=== PATIENT | female | born 1980 ===

== ENCOUNTER 2017-02-12 11:58 | Emergency (ER) | payer SELFPAY ==
[2017-02-12 12:03] VITALS: BMI 26.6
[2017-02-12 12:09] VITALS: TEMP 97.8
[2017-02-12 12:42] LABS: HCG,QUALITATIVE URINE NEGATIVE (NEGATIVE)
[2017-02-12] MEDS ORDERED: Lactated Ringer's 1,000 ML IV ONE (12:51)
[2017-02-12] MEDS ORDERED: Morphine 4 MG/ML VIAL ONE (12:55)
[2017-02-12 12:58] LABS: SQUAMOUS EPITHIAL 4 /hpf (0-5); URINE BILIRUBIN NEGATIVE (NEGATIVE); URINE CLARITY Clear (Clear); URINE COLOR Yellow (YELLOW); URINE GLUCOSE (UA) NORMAL (Normal); URINE LEUKOCYTE ESTERASE NEG Leu/uL (Negative); URINE NITRATE NEGATIVE (NEGATIVE); URINE PROTEIN 1+ mg/dL (NEGATIVE)
[2017-02-12 13:01] LABS: URINE BLOOD TRACE (NEGATIVE)
[2017-02-12 13:25] LABS: BASO # 0.1 K/uL (0.0-0.2); BASO % 0.4 % (0.0-2.0); HEMOGLOBIN 13.6 g/dL (11.0-16.0); LYMPH % 6.3 % (20.0-40.0); MEAN CELL VOLUME 90.5 fL (81.0-99.0); MEAN CORPUSCULAR HEMOGLOBIN 31.3 pg (27.0-31.0); MEAN CORPUSCULAR HGB CONC 34.6 g/dL (33.0-37.0); MEAN PLATELET VOLUME 7.4 fL (7.2-11.7); MONO # 0.4 K/uL (0.0-0.8); MONO % 2.4 % (0.0-10.0); NEUT # 13.9 K/uL (1.8-7.0); NEUT % 90.9 % (50.0-75.0); PLATELET COUNT 366 K/uL (130-400); RBC 4.35 Mil/uL (3.80-5.20); RED CELL DISTRIBUTION WIDTH 12.4 % (11.5-14.5); WHITE BLOOD COUNT 15.3 K/uL (4.8-10.8)
[2017-02-12 13:35] LABS: ALB/GLOB RATIO 1.4 (1.0-2.1); ALBUMIN 4.5 g/dL (3.5-5.0); ALT/SGPT 23 U/L (9-52); AST/SGOT 23 U/L (14-36); BLOOD UREA NITROGEN 18 mg/dL (7-17); CALCIUM 8.8 mg/dl (8.6-10.4); GFR AFRICAN-AMERICAN > 60; GFR NON-AFRICAN AMERICAN > 60; LIPASE 32 U/L (23-300)
--- NOTE | 2017-02-12 13:41 | C.PDOC ---
History Of Present Illness Patient is a 36 y/o female who presents to the ED with complaint of lower abdominal pain associated with nausea, 1 episode of vomiting, and a burning sensation when urinating for the last 3 days. Patient admits symptoms increased gradually over the last 3 days, but now radiates to her lower back. Denies any high fever, SOB, CP, chills, or recent illness. No other physical complaints at this time. Time Seen by Provider: 02/12/17 12:25 Chief Complaint (Nursing): Abdominal Pain History Per: Patient History/Exam Limitations: no limitations Onset/Duration Of Symptoms: Days (3 days), Gradual Current Symptoms Are (Timing): Still Present Location Of Pain/Discomfort: Suprapubic Radiation Of Pain To:: Back (lower back) Associated Symptoms: Nausea, Vomiting (1 episode), Urinary Symptoms (dysuria). denies: Fever, Chills Recent travel outside of the [place]: No Past Medical History Reviewed: Historical Data, Nursing Documentation, Vital Signs Vital Signs: Last Vital Signs Temp 97.8 F 02/12/17 12:03 Pulse 74 02/12/17 12:03 Resp 20 02/12/17 12:03 BP 109/62 02/12/17 12:03 Pulse Ox 99 02/12/17 15:28 - Medical History PMH: No Chronic Diseases Surgical History: No Surg Hx Family History: States: No Known Family Hx - Social History Hx Alcohol Use: No Hx Substance Use: No - Immunization History Hx Tetanus Toxoid Vaccination: No Hx Influenza Vaccination: No Hx Pneumococcal Vaccination: No Review Of Systems Constitutional: Negative for: Fever, Chills Cardiovascular: Negative for: Chest Pain Respiratory: Negative for: Shortness of Breath Gastrointestinal: Positive for: Nausea, Vomiting, Abdominal Pain Genitourinary: Positive for: Dysuria ("burning") Musculoskeletal: Positive for: Back Pain (lower back) Physical Exam - Physical Exam Appears: Well, Non-toxic, Other (in pain) Skin: Normal Color, Warm, Dry, No Rash Head: Normacephalic Eye(s): bilateral: PERRL Nose: No Flaring, No Discharge Oral Mucosa: Moist, No Drooling Throat: No Drooling Neck: Trachea Midline, Supple Chest: Symmetrical Cardiovascular: Rhythm Regular, No Murmur Respiratory: No Decreased Breath Sounds, No Accessory Muscle Use, No Rales, No Rhonchi, No Stridor, No Wheezing Gastrointestinal/Abdominal: Soft, Tenderness (moderate suprapubic tenderness), No Distention, No Guarding, No Rebound Back: No CVA Tenderness, Other (R flank tenderness) Extremity: Normal ROM, No Pedal Edema, No Deformity Neurological/Psych: Oriented x3, Normal Speech, Normal Cognition ED Course And Treatment - Laboratory Results Result Diagrams: 02/12/17 13:19 02/12/17 13:19 Urine POC: Negative O2 Sat by Pulse Oximetry: 99 Pulse Ox Interpretation: Normal - CT Scan/US CT abd/pel Other Rad Studies (CT/US): Interpreted By Me, Read By Radiologist CT/US Interpretation: PROCEDURE: CT Abdomen and Pelvis without intravenous contrast. HISTORY: FLANK, RLQ PAIN. COMPARISON: None. TECHNIQUE: Axial and reformatted coronal and sagittal CT images of the abdomen and pelvis were obtained after IV contrast administration.. Contrast Dose: 100 mL Omnipaque 300. Radiation dose: Total exam DLP = 566.09 mGy-cm. This CT exam was performed using one or more of the following dose reduction techniques: Automated exposure control, adjustment of the mA and/or kV according to patient size, and/or use of iterative reconstruction technique. FINDINGS: LOWER THORAX : Small opacities noted at the lung bases likely represent atelectasis. LIVER : Mild hepatic steatosis is noted. There is sub centimeter low-attenuation focus at the anterior aspect of the right liver lobe may represent benign liver cyst. GALLBLADDER AND BILE DUCTS: Unremarkable. PANCREAS: Unremarkable. No gross lesion or ductal dilatation. SPLEEN: Unremarkable. ADRENALS: Unremarkable. No mass. KIDNEYS AND URETERS: There is pfss-vs-ikzjzqed decreased enhancement of the right kidney relative to the left. There is mild- to-moderate right hydronephrosis and hydroureter up to 4.5 millimeter calculus at the distal right ureter. Mild right perirenal fluid and stranding noted. The left kidney demonstrates normal enhancement. There is low-attenuation lesion at the upper pole of the left kidney measures 7 millimeter may represent renal cysts. No evidence of left hydronephrosis. VASCULATURE: Unremarkable. No aortic aneurysm. BOWEL: Unremarkable. No obstruction. No gross mural thickening. APPENDIX: Unremarkable. Normal appendix. PERITONEUM: Unremarkable. No free fluid. No free air. LYMPH NODES: Unremarkable. No enlarged lymph nodes. BLADDER: Unremarkable. REPRODUCTIVE: There is 1.9 centimeters cyst at the right adnexa. Small amount of fluid noted in the uterine cavity. The left adnexa is unremarkable. BONES: No acute fracture. OTHER FINDINGS: None. IMPRESSION: Cmxt-mi-eraxyylc right hydronephrosis and hydroureter up to 4.5 millimeter calculus at the distal right ureter. Delayed enhancement of the right kidney and perinephric fluid and stranding due to right ureteral stone. Correlate clinically for UTI or pyelonephritis. 1.9 centimeters cyst at the right adnexa. No evidence of cholecystitis pancreatitis or appendicitis. Progress Note: A/P CT, urine C&S, and blood work ordered. Morphine and IV fluids administered. Pt was OBS in Ed for 4hours and reports improvement in sx after Ed tx. On re-eval, pt is afebrile, hemodynamicaly stable. non-toxic. Tolerate Po well in ED. Neck: Supple, (-) JVD. ENT: no acute findings. Lungs : CTA B/L, BS equal B/L. Abd: benign, (-) guarding, (-) rebound. back: (-) CVA tenderness. neuorlogicaly intact. Blood work review , mild leukocytosis w/ left shift. CMP - normal study. UA no acute findings, preg (-). CT abd/ pelvis review: (+) Right distal ureter 4.5 mm with mild/mod hydronephrosis with peripheral fluid and stranding. results review and discussed with pt. Pt has clinical findings c/w Right kidney stone. Pt advised on course of ds. ref. to f/u with Urology in 2-3 days for re-eavl. return to ED if any worsening or new changes. Disposition Counseled Patient/Family Regarding: Studies Performed, Diagnosis, Need For Followup, Rx Given - Disposition Referrals: Yue Chambers MD [Staff Provider] - Disposition: HOME/ ROUTINE Disposition Time: 16:00 Condition: STABLE Additional Instructions: URINE STRAINING TAKE MEDICATION PRESCRIBED FOLLOW UP WITH UROLOGIST IN 2-3 DAYS FOR RE-EVALUATION. RETURN TO ED IF ANY WORSENING OR NEW CHANGES. Prescriptions: Ciprofloxacin [Cipro] 1 tab PO BID #14 tab Ibuprofen [Motrin Tab] 600 mg PO Q6 #10 tab Tamsulosin [Flomax] 0.4 mg PO DAILY #14 cap traMADol [Ultram] 50 mg PO TID #7 tab Instructions: Kidney Stones (ED) Forms: [facility] (Northern Irish) Print Language: SWEDISH - Clinical Impression Clinical Impression: Kidney calculus - Scribe Statement The provider has reviewed the documentation as recorded by the Scribe Myrna Sy All medical record entries made by the Scribe were at my direction and personally dictated by me. I have reviewed the chart and agree that the record accurately reflects my personal performance of the history, physical exam, medical decision making, and the department course for this patient. I have also personally directed, reviewed, and agree with the discharge instructions and disposition.
[2017-02-12] MEDS ORDERED: Iohexol 300 100 ML IJ ONE (13:44)
[2017-02-12 13:55] LABS: BANDS 4 % (0-2); LYMPHOCYTE 7 % (20-40); MONOCYTE 3 % (0-10); NEUTROPHIL 86 % (50-75); TOTAL CELLS COUNTED 100
[2017-02-12 13:56] LABS: PLATELET ESTIMATE NORMAL (NORMAL)
--- NOTE | 2017-02-12 15:01 | CT ---
PROCEDURE: CT Abdomen and Pelvis without intravenous contrast HISTORY: FLANK, RLQ PAIN COMPARISON: None. TECHNIQUE: Axial and reformatted coronal and sagittal CT images of the abdomen and pelvis were obtained after IV contrast administration.. Contrast Dose: 100 mL Omnipaque 300 Radiation dose: Total exam DLP = 566.09 mGy-cm. This CT exam was performed using one or more of the following dose reduction techniques: Automated exposure control, adjustment of the mA and/or kV according to patient size, and/or use of iterative reconstruction technique. FINDINGS: LOWER THORAX: Small opacities noted at the lung bases likely represent atelectasis. LIVER: Mild hepatic steatosis is noted. There is sub centimeter low-attenuation focus at the anterior aspect of the right liver lobe may represent benign liver cyst. GALLBLADDER AND BILE DUCTS: Unremarkable. PANCREAS: Unremarkable. No gross lesion or ductal dilatation. SPLEEN: Unremarkable. ADRENALS: Unremarkable. No mass. KIDNEYS AND URETERS: There is cevz-zb-yyzhkmfk decreased enhancement of the right kidney relative to the left. There is fgne-gq-tfgwhaal right hydronephrosis and hydroureter up to 4.5 millimeter calculus at the distal right ureter. Mild right perirenal fluid and stranding noted. The left kidney demonstrates normal enhancement. There is low-attenuation lesion at the upper pole of the left kidney measures 7 millimeter may represent renal cysts. No evidence of left hydronephrosis. VASCULATURE: Unremarkable. No aortic aneurysm. BOWEL: Unremarkable. No obstruction. No gross mural thickening. APPENDIX: Unremarkable. Normal appendix. PERITONEUM: Unremarkable. No free fluid. No free air. LYMPH NODES: Unremarkable. No enlarged lymph nodes. BLADDER: Unremarkable. REPRODUCTIVE: There is 1.9 centimeters cyst at the right adnexa. Small amount of fluid noted in the uterine cavity. The left adnexa is unremarkable. BONES: No acute fracture. OTHER FINDINGS: None. IMPRESSION: Tsgi-rt-wqeuwylr right hydronephrosis and hydroureter up to 4.5 millimeter calculus at the distal right ureter. Delayed enhancement of the right kidney and perinephric fluid and stranding due to right ureteral stone. Correlate clinically for UTI or pyelonephritis. 1.9 centimeters cyst at the right adnexa. No evidence of cholecystitis pancreatitis or appendicitis.
[2017-02-12 17:14] VITALS: BP 112/70; PULSE 72; RESP 18; O2SAT 98
== END 2017-02-12 17:13 | disposition home or self-care (01) ==
LOC: C.ER 11:58
DX: N13.2 Hydronephrosis with renal and ureteral calculous obstruction (principal)
CPT/HCPCS: 74177; 80053; 81001; 83690; 84703; 85025; 87086; 96361; 96372; 96374; 96375; 99284; J1885; J2270; J2405; J7120; Q9967